=== PATIENT | male | born 1950 | race Caucasian/White ===

== ENCOUNTER → 2022-03-24 | Outpatient (CLI) | payer MEDICARE, OTHER, SELFPAY ==
--- NOTE | 2022-03-24 08:56 | RAD_ITS ---
STUDY: X-RAY CHEST REASON FOR EXAM: Male, 71 years old. Fever and cough TECHNIQUE: PA and lateral views of the chest. COMPARISON: 02/21/2014 FINDINGS: Stable elevation of the left hemidiaphragm The lungs are clear and expanded. There is no demonstrated pleural abnormality. Normal size heart. Normal mediastinum and kim. Normal visualized pulmonary arteries. There is atherosclerotic calcification of the aortic arch with tortuosity. There are diffuse degenerative changes of the visualized thoracic spine. Normal visualized ribs, clavicles, and shoulders. There is no demonstrated abnormality of the visualized soft tissue structures of the upper abdomen. RAD/Chest PA and Lateral IMPRESSION: No acute pulmonary process Electronically Signed: Aaron Green MD at 9:16 EDT ,
[2022-03-24 10:16] LABS: Absolute Lymphocyte Count 2.05 X10^3/uL (0.83-4.51); Absolute Neutrophil Count 3.6 X10^3/uL (2.0-7.7); Basophil# 0.05 X10^3/uL; Basophil% 0.8 % (0-1); Eosinophil# 0.22 X10^3/uL; Eosinophils% 3.3 % (0-5); Hematocrit 42.8 % (40-54); Hemoglobin 14.4 g/dL (13.0-16.5); Lymphocyte # 2.05 X10^3/ul (0.83-4.51); Lymphocyte % 31.1 % (19-41); Mean Corp Hgb Conc 33.6 g/dL (32-36); Mean Corpuscular Hgb 30.1 pg (27.0-32.0); Mean Corpuscular Volume 89.5 fL (80-94); Mean Platelet Vol. 9.9 fl (6.2-12.0); Monocyte% 9.1 % (0-10); NRBC Flagged by Analyzer 0 % (0-5); Neutrophil # 3.64 X10^3/uL (2.7-7.7); Neutrophil % 55.2 % (47-70); Platelet Count 199 K/mm3 (150-450); RBC Distribution Width CV 12.8 % (11.6-14.6); RBC Distribution Width SD 42.2 fl (35.1-43.9); Red Blood Count 4.78 M/mm3 (4.6-6.2); White Blood Count 6.6 K/mm3 (4.4-11.0)
[2022-03-24 10:30] LABS: Prothrombin Time (Protime)PT. 12.5 SECONDS (11.7-14.9)
[2022-03-24 10:31] LABS: Partial Thromboplast Time 28.7 Seconds (24.1-36.2)
[2022-03-24 10:47] LABS: Anion Gap 8 (5-15); BUN 18 mg/dL (7-18); BUN/Creat Ratio 19.9 RATIO (10-20); Calcium,Total 8.7 mg/dL (8.5-10.1); Chloride 103 mmol/L (98-107); EST Glomerular Filtration Rate 88 mL/min (>60); Est Glom Filt Rate - Afr Amer 106 mL/min (>60); Glucose 85 mg/dL (74-106); Potassium 4.6 mmol/L (3.5-5.1); Sodium Level 139 mmol/L (136-145)
== END | disposition home or self-care (01) ==
LOC: MTLAB 08:56
PROVIDERS: PCP Family Medicine; Referring Provider Physician Assistant Medical; Visit Provider Physician Assistant Medical
DX: R06.00 Dyspnea, unspecified (principal); I35.0 Nonrheumatic aortic (valve) stenosis; I25.10 Atherosclerotic heart disease of native coronary artery without angina pectoris
CPT/HCPCS: 36415; 71046; 80048; 85025; 85610; 85730

== ENCOUNTER 2022-03-31 08:36 | Day surgery (SDC) | payer MEDICARE, OTHER, SELFPAY ==
[2022-03-30 07:03] VITALS: BMI 26.1
--- NOTE | 2022-03-30 17:27 | HP.PCM_ITS ---
History and Physical Date of Admission: 03/31/22 [facility] [address] [place], [place] [address] OFFICE VISIT Date of Service:? 02/16/22 MR#: [id number] Acct: [id number] Name:VALE CAMACHO Rep #: [id number] : 1950 ?Provider: ?AUGUSTINE Ayon Age/Sex:? 71/M ?[place] [facility] Status: Signed HPI HPI History of Present Illness Details: Vale Burgess is a 71-year-old male that presents here today for a cardiovascular follow-up.? He has a history of coronary artery disease with previous stenting to mid PDA and distal RCA in February 2014, hypertension, mild aortic valve stenosis, PACs/PVCs, hyperlipidemia, carotid artery disease. Pt underwent a stress test in [place] in 05/2022 for SOB,? He can not tell me what this demonstrated. He was then put on an inhaler for his SOB.? He tells me that there was a question about obtaining a heart cath however since his SOB improved with the inhaler that was not pursued.? He then had an echo in [place].? He tells me that he is scheduled to have a stress test in [place] in May.? He does not have any chest pain.? He is SOB is improved with the MDI. He does not have any claudication. Intake Vital Signs ? 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 Accompanied by: Self Allergies atorvastatin calcium [From Lipitor] Allergy (Verified 02/16/22 10:00) Unknownrosuvastatin calcium [From Crestor] Allergy (Verified 02/16/22 10:00) Unknown Medications cetirizine 10 mg tablet 10 mg PO PRN PRN Allergies 02/22/14 [History Confirmed 02/16/22] amoxicillin 500 mg tablet 2 g PO .COMPLEX 03/04/18 [History Confirmed 02/16/22] etodolac 400 mg tablet (Lodine) 400 mg PO DAILY 02/21/20 [History Confirmed 02/16/22] simvastatin 20 mg tablet 20 mg PO QHS 02/21/20 [History Confirmed 02/16/22] lisinopril 5 mg tablet 5 mg PO QDAY #90 tabs 03/18/21 [Rx Confirmed 02/16/22] gabapentin 100 mg capsule 200 mg PO QHS 02/16/22 [History Confirmed 02/16/22] PFSH Medical History? Aortic stenosis Atherosclerotic heart disease of [place] coronary artery without angina pectoris Bilateral carotid artery stenosis Cardiac murmur Diastolic dysfunction Essential hypertension Hypertension Non-rheumatic mitral regurgitation Non-rheumatic tricuspid valve insufficiency Nonrheumatic aortic (valve) stenosis Osteoarthritis Premature atrial contractions Premature ventricular contraction Syncope Surgical History? History of bilateral cataract extraction History of elbow surgery History of knee replacement procedure of left knee History of knee replacement procedure of right knee History of prostatectomy (~02/2016) History of shoulder surgery History of tonsillectomy and adenoidectomy Postsurgical percutaneous transluminal coronary angioplasty (PTCA) status (~02/23/14) Presence of stent in coronary artery (~02/23/14) Family History? Father?? Myocardial infarction,? Onset Age: 60Mother?? COPD (chronic obstructive pulmonary disease) Aortic aneurysm Social History? Smoking Status:? Former smoker ROS Const Const: Negative for fatigue, weakness, body ache, fever(s), headache(s), chills, frequent falls, night sweats, daytime sleepiness, difficulty sleeping, excessive sweating, weight gain, weight loss, increased appetite, poor appetite, anorexia or other Eyes Eyes: Negative for blurry vision or double vision ENT ENT: Negative for headache(s), dizziness or balance problems Cardio Chest Pain: No Palpitations: No Edema: None Muscle aches with walking: None Resp Respiratory: Positive for SOB with activity and wheezing (occasional); Negative for SOB at rest, SOB orthopnea\SOB lying down, Cough, Coughing up blood/hemoptysis, chest congestion, pain on inspiration, snoring, stridor, crackles, paroxysmal nocturnal dyspnea or other Musc Musc: Positive for muscle aches/ myalgia (silva horse at night); Negative for muscle weakness, joint pain or balance problems Neuro Neuro: Negative for dizziness, lightheadedness, near syncope, syncope, orthostatic symptoms, frequent falls, headache(s), weakness, confusion, memory loss, restless legs, blurry vision, double vision, vertigo, seizures, lack of coordination or other Endo Endo: Negative for fatigue or excessive sweating Cardiology Exam Const Appearance: cooperative, healthy appearing, comfortable, no acute distress, well developed and well groomed Nutritional Appearance: overweight Orientation: alert and oriented x3 Head Head: normal to inspection and normocephalic Ears: hearing grossly normal bilaterally Nose: external nose normal Eyes Eyelids: eyelids normal Conjunctivae: conjunctivae normal Pupils: PERRL EOM: EOM intact bilaterally Neck Neck: normal visual inspection and full ROM Carotids: normal carotid upstroke and bruit Bilateral Chest Chest inspection: normal inspection of the chest, symmetric chest movement and normal respiratory effort Auscultation: Bilateral: Clear to Auscultation Cardio Rate: regular rate Rhythm: regular rhythm Heart sounds: S1 normal, murmur and diminished A2 Murmur: Grade 3/6, mid systolic, LLSB, LVOT, sternal notch and radiates to carotids GI GI: normal to inspection, soft and bowel sounds present Neuro General: patient alert, patient awake, patient oriented x3 and moves all extremities Skin Skin: no rashes or lesions noted Extremities Pulses: Normal: Right Radial Pulse and Left Radial Pulse Lower Extremity Edema: None: Bilateral Psych Psychological: normal affect Supplemental Info Supplemental Information Echocardiogram: 02-20-2014 Interpretation Summary Left ventricular systolic function is normal. The estimated ejection fraction is 60 %. Trivial mitral valve insufficiency. Trivial tricuspid valve insufficiency. Mild aortic stenosis. Stress nuclear imaging study: 02-20-2014 EXERCISE TOLERANCE TEST: The patient exercised on a Angel Luis protocol for 11 minutes 30 seconds completing stage 3 and 2 minutes 30 seconds of stage 4 achieving a peak heart rate of 148 beats per minute (94% predicted maximum heart rate) and a peak blood pressure of 180/88 mmHg and a peak MET capacity of approximately 13 METS. The baseline ECG demonstrated sinus bradycardia.? The peak exercise ECG d emonstrated no obvious ECG changes. There was no obvious cardiac dysrhythmias pretest, during, exercise, or recovery. The functional capacity was considered good. The patient had no complaint of chest discomfort during exercise or recovery. The examination was discontinued secondary to dyspnea. IMPRESSION: 1.? Technically adequate (percent predicted maximum heart rate greater than 85%) exercise tolerance test. 2.? Peak exercise ECG with no obvious ECG changes. 3.? Nuclear images pending. MYOCARDIAL PERFUSION IMAGING STUDY: TECHNIQUE: The patient was injected with 11.1 mCi of Tc99m Cardiolite and subsequently rest SPECT Cardiolite nuclear imaging was obtained in the horizontal long, vertical long, and short axes views.? The patient exercised on a Angel Luis protocol for 11 minutes 30 seconds achieving a peak heart rate of 148 beats per minute (94% predicted maximum heart rate) with a peak blood pressure of 180/88 mmHg and a peak MET capacity of 13 METS.? The patient was injected with 33.4 mCi of Tc99m Cardiolite and subsequently stress SPECT Cardiolite nuclear imaging was obtained in the horizontal long, vertical long, and short axes views.? A gated Cardiolite study at peak stress was obtained. INTERPRETATION: Rest and stress SPECT Cardiolite nuclear imaging demonstrate the appearance of underlying body motion during image acquisition.? There is notation of an area of diminished tracer uptake in the basal inferoseptal/basal inferior segments, which appears to be without significant change.? Following stress there appears to be an area of mild decreased tracer uptake in the mid inferior segments.? There are similar type findings on the resting and stress polar map images.? There is end systolic thickening and brightening.? The gated Cardiolite study demonstrates myocardial thickening and inward wall motion.? The reported LVEF is 68%.? The aforementioned changes maybe compatible with the effects of underlying body motion/artifact during image acquisition and/or soft tissue attenuation/artifact, however, an element of myocardial ischemia in the mid inferior segments cannot necessarily be excluded. IMPRESSION: 1.? Rest and stress SPECT Cardiolite nuclear imaging demonstrate myocardial perfusion changes potentially compatible with body motion/artifact during image acquisition and/or soft tissue attenuation/artifact, however, an element of myocardial ischemia in the mid inferior segments cannot necessarily be excluded. 2.? The gated Cardiolite study reports an LVEF of 68%. Stress echocardiogram: 01-22-2015 Interpretation Summary Negative (Adequate) Stress Echocardiogram Cardiac catheterization: 02-23-2014 Final impression: 1.? Elevated left ventricular end-diastolic pressure compatible decreased diastolic compliance 2.? Left ventricle: A.? Normal left ventricular size, wall motion, and systolic function B.? Estimated LVEF of 65% 3.? Left Main coronary artery: A.? Angiographically normal 4.? Left anterior descending coronary artery: A.? Status post septal senior data developer: 10-25% appearing stenosis in the area of a [place] bend 5.? Left circumflex coronary artery: A.? Minimal luminal irregularities 6.? Right coronary artery: A.? Diffuse minimal luminal irregularities B.? Proximal 25% eccentric-appearing stenosis C.? Distal 10-25% eccentric-appearing stenosis D.? Distal 25-50% eccentric-appearing stenosis E.? Right PDA with 75% appearing stenosis 7.? Aortic valve: A.? Left heart pullback procedure with a peak to peak gradient of approximately 10-15 mmHg compatible with an element of underlying aortic valve stenosis B.? Of note, the precardiac catheterization transthoracic echocardiogram demonstrated findings compatible with mild aortic valve stenosis PCI: 02-23-2014: [facility] RCA: Distal: ANGELITO PDA: Mid: ANGELITO [place] cardiology update: From earlier this -2019 Update: from [place]: echo/doppler: normal LV systolic function and mild to moderate AV stenosis; stress nuclear study considered mild inferior ischemia - similar to before; carotid doppler study: mild disease bilaterally; no new recommendations made. Labs: ?? ? LDL Cholesterol 82 mg/dL (0-130) ?? ? HDL Cholesterol 38 mg/dL (40-) L ?? ? Triglycerides 130 mg/dL (0-199) ?? ? VLDL Cholesterol 26 mg/dL (5-40) Diagnostics: ?? ? Electrocardiogram ? Cardiac Tilt Table Test ? Stress Echocardiogram ? Chest X-Ray ? Pulmonary: ?? ? No Data to Display Assessment and Plan Assessment and Plan (1) Atherosclerotic heart disease of [place] coronary artery without angina pectoris: ?Status:?Chronic ?Qualifiers: ?[place] vs. transplanted heart:?[place] heart? Qualified Code(s):?I25.10 - Atherosclerotic heart disease of [place] coronary artery without angina pectoris ?Plan: Patient does not have any symptoms of angina.? He did tell me that he had a stress test done in [place].? We will obtain these medical records.? There was some question on whether or not he should pursue a heart catheterization however his shortness of breath did improve with his MDI.? For now they are watchful waiting.? He will continue with aggressive medical management. (2) Presence of stent in coronary artery: ?Status:?Chronic ?Comment: PTCA/ANGELITO to the mid PDA and distal RCA 02/23/14 (3) Aortic stenosis: ?Status:?Acute ?Plan: Per [place] records this is moderately severe.? Also suspect that this could have been contributing to his shortness of breath.? We will obtain medical records from [place].? We will then review with Dr. Garg.? However in the meantime we will continue with current medications.? He is not short of breath at this time. (4) Bilateral carotid artery stenosis: ?Status:?Chronic ?Plan: Reviewed medical records from [place].? This is stable.? We will continue to monitor. (5) Essential hypertension: ?Status:?Chronic ?Plan: Adequately controlled on current medications.? Will not make any adjustments. Plan Details Additional Comments: Thank you for allowing me to participate in the care of your patient.? Please don't hesitate to call if any issues arise. This note was generated using a voice recognition system and there may be incorrect words, spelling or punctuation that were not noted when reviewing the office note prior to saving. Follow Up: ? ? 1 Year (PFM) Coding Level of Care Code Off vis,est,level 3 Diagnoses Atherosclerotic heart disease of [place] coronary artery without angina pectoris? I25.10 ? ? ? [place] vs. transplanted heart: [place] heart Presence of stent in coronary artery? Z95.5 Aortic stenosis? I35.0 Bilateral carotid artery stenosis? I65.23 Essential hypertension? I10 Coding Level of Care Code Off vis,est,level 3 Diagnoses Atherosclerotic heart disease of [place] coronary artery without angina pectoris? I25.10 ? ? ? [place] vs. transplanted heart: [place] heart Presence of stent in coronary artery? Z95.5 Aortic stenosis? I35.0 Bilateral carotid artery stenosis? I65.23 Essential hypertension? I10 02/16/22 1043 <Electronically signed by Mei BRADSHAW> Date Mei Lugo Signature: Date (if applicable) CC:? Dr. Daryl Cortes MD ~ Assessment & Plan Addt'l Comments Addendum: The patient had a transthoracic echocardiogram performed at [facility] [place], [place] on 06-23-2021. It demonstrated what appeared to be findings compatible with severe aortic valve stenosis with an aortic valve velocity greater than 4 m/s, a mean gradient greater than 40 mmHg, and an aortic valve area less than 1.0 cm?. The patient had a stress test performed at [facility] [place], [place] on 06-25-2021. It was reported abnormal demonstrating an area of ischemia in the mid inferior segment which was reportedly similar to a previous study performed in June 2020. Based upon the aforementioned clinical course and objective findings it was felt reasonable to patient be further evaluated with diagnostic cardiac catheterization to reassess coronary anatomy for need for additional revascularization therapy as well as in preparation for consideration for a tertiary care center evaluation for a possible TAVR procedure. The patient now presents for additional evaluation with diagnostic cardiac catheterization. The procedure and risks have been discussed with him. He was agreeable to this approach.
[2022-03-31 10:30] LABS: Base Excess 2 mmol/L (-2 to +2); Bicarbonate 27.4 mmol/L (22-26); Blood Gas Specimen Type ART; PO2 66 mmHG (75-100); SO2 92 % (95-99); Total Carbon Dioxide 29 mmol/L; pCO2 46.2 mmHg (35-45); pH 7.38 (7.35-7.45)
[2022-03-31 10:40] LABS: Blood Gas Specimen Type VEN; VBG BASE EXCESS 4 mmol/L (-1.0-3.5); VBG Bicarbonate 30 mmol/L (22-26); VBG PO2 42 mmHg (25-40); VBG SO2 75 % (50-70); VBG TCO2 31 mmol/L (23-33); VBG pCO2 50.7 mmHg (41-51); VBG pH 7.37 (7.32-7.42)
[2022-03-31 10:45] LABS: Blood Gas Specimen Type VEN; VBG BASE EXCESS 5 mmol/L (-1.0-3.5); VBG Bicarbonate 30 mmol/L (22-26); VBG PO2 40 mmHg (25-40); VBG SO2 73 % (50-70); VBG TCO2 31 mmol/L (23-33); VBG pH 7.38 (7.32-7.42)
[2022-03-31 10:55] LABS: Blood Gas Specimen Type VEN; VBG BASE EXCESS 4 mmol/L (-1.0-3.5); VBG Bicarbonate 29 mmol/L (22-26); VBG PO2 40 mmHg (25-40); VBG SO2 71 % (50-70); VBG TCO2 31 mmol/L (23-33); VBG pCO2 51.9 mmHg (41-51); VBG pH 7.36 (7.32-7.42)
--- NOTE | 2022-03-31 11:49 | CL.D_ITS ---
Patient Name: VALE MARTE Study Date: 03/31/2022 Performing: Dio Garg MD Ht: 69 inches 175.26 cm : 1950 Wt: 177.01 lbs 80.29 kg Age: 71 Gender: male BSA: 1.96 PROCEDURE(S) PERFORMED DC06-([id number])RHC/LHC/COR CLINICAL PROFILE AND INDICATIONS Indications: Suspected CAD, Valvular Disease, Pre-Operative Evaluation Heart Failure: None Stress/Imaging Date: 06/25/2021tress Test with SPECT MPI: Positive Intermediate Risk Angina Classification Anginal Classification w/in 2 Weeks: Anginal Equivalent Dyspnea CAD Presentations: Other: dyspnea on exertion CONCLUSIONS [place] Multivessel CAD Aortic Valve Calcification- Severe Aortic Valve Insufficiency Mild RECOMMENDATIONS Risk factor modification Medical therapy Tertiary Care Center: evaluation for CAD and AV stenosis: consideration for PCI and TAVR Case discussed / reviewed with Dr. Taylor of Interventional Cardiology DESCRIPTION OF PROCEDURE The patient arrived to the procedure lab. The risks and benefits of the procedure as well as a full description of our services here and current unavailability of surgical backup were fully explained to the patient and/or their significant other prior to the catheterization. The Timeout was completed, verifying the correct patient and procedure. The patient's procedural site was prepped and draped in the usual fashion. Local anesthetic was given subcutaneously to right radial region with Lidocaine 2%. Local anesthetic was given subcutaneously to right brachial region with Lidocaine 2%. Using a modified Seldinger technique, arterial access was obtained via the right radial artery, a 6Fr sheath was inserted. Venous access was obtained via the right brachiocephalic vein, a 7Fr sheath was inserted. A 7Fr thermal dilution catheter was inserted and right heart pressures were recorded, it was then advanced to PA position for cardiac outputs. Thermal dilution cardiac outputs were then recorded. O2 saturations were then obtained. The Thermal dilution catheter was then removed. Left Coronary Artery selective angiography was performed in multiple views using a 5 Fr. 4.0 [place] catheter. Right Coronary Artery selective angiography was then performed in multiple views using a 5 Fr. 4.0 [place] catheter.The arterial sheath was pulled and a TR Band was applied for hemostasis. The venous sheath was then pulled and manual compression applied until hemostasis achieved CORONARY ANGIOGRAPHY DOMINANCE: Right Dominant LEFT HEART ASSESSMENT RIGHT HEART ASSESSMENT Thermal CO: 5.68 Thermal CI: 2.9 PW: 7/6 5 PA: 24/6 12 RV: 25/-2 3 RA: 3/1 0 PVR: 99 LEFT MAIN: Angiographically normal LEFT ANTERIOR DESCENDING ARTERY: PROX LAD: Mild calcification, Mild luminal irregularities MID LAD: 25 % Stenosis CIRCUMFLEX ARTERY: PROX CIRC: Mild luminal irregularities RIGHT CORONARY ARTERY: Mild luminal irregularities DISTAL RCA: hazy: 75 % Stenosis (pre stent), Previously placed stent is patent RT PDA: Proximal - 75 % Stenosis, Mid - Previously placed stent is patent VALVE FINDINGS: Aortic Valve Calcification - severe Aortic Valve Insufficiency: Grade 1 AORTIC ROOT: Angiographically normal COMPLICATIONS No Complications PROCEDURE MEDICATIONS Fentanyl 50 mcg IV Versed 1 mg IV Aspirin (325mg) 1 Tabs PO @ 03/31/2022 08:57:23 Heparin given IA 03/31/2022 10:43:35 Verapamil 2.5mg, 3000 units of Heparin given IA 03/31/2022 10:43:35 SUMMARY OF HEMODYNAMIC DATA Time AIR REST ECG 08:58:14 RA 3/ (0) 10:37:20 RV 25/-2, 3 10:37:48 PW 7/6 (5) PV 10:38:28 PA 24/6 (12) PA 10:38:45 PAp 27/5 (13) 10:40:55 RVp 27/6, 9 10:41:00 AO 135/60 (88) SA 10:47:54 ECG 11:40:48 Type SV CO (l/m) CI (l/m/ HR Time AIR REST Thermal 88.80 5.68 2.90 64 08:58:14 Label % O2 Pres/Loc Time AIR REST SVC 71 11:12:14 AO 92 PV 11:12:24 PA 73 PA 11:12:33 RA 75 SV 11:12:39 Signed By Dio Garg MD On 03/31/2022 11:48:41 Dio Garg MD
== END 2022-03-31 13:00 | disposition home or self-care (01) ==
LOC: CLSP 08:39
PROVIDERS: PCP Family Medicine; Referring Provider Internal Medicine Cardiovascular Disease; Visit Provider Internal Medicine Cardiovascular Disease
DX: I25.10 Atherosclerotic heart disease of native coronary artery without angina pectoris (principal); I35.2 Nonrheumatic aortic (valve) stenosis with insufficiency; I65.23 Occlusion and stenosis of bilateral carotid arteries; I10 Essential (primary) hypertension; Z95.5 Presence of coronary angioplasty implant and graft; Z79.899 Other long term (current) drug therapy; Z87.891 Personal history of nicotine dependence; Z82.49 Family history of ischemic heart disease and other diseases of the circulatory system
CPT/HCPCS: 82803; 93005; 93457; 99152; 99153; J7040; Q9967; C1751; C1769; C1894

== ENCOUNTER → 2023-01-14 | Outpatient (CLI) | payer MEDICARE, OTHER, SELFPAY ==
--- NOTE | 2023-01-14 08:23 | MRI_ITS ---
STUDY: MRI RIGHT KNEE REASON FOR EXAM: Male, 72 years old. TECHNIQUE: Standardized fat and water weighted pulse sequences were obtained in all 3 orthogonal planes. COMPARISON: None. FINDINGS: Very limited examination. Examination is not diagnostic. MRI/Lower Ext Joint Only (Routine) IMPRESSION: Nondiagnostic examination. Electronically Signed: Erik Pete MD at 13:44 EDT ,
== END | disposition home or self-care (01) ==
LOC: MRI 08:14
PROVIDERS: PCP Family Medicine; Referring Provider Orthopaedic Surgery; Visit Provider Orthopaedic Surgery
DX: T84.84XA Pain due to internal orthopedic prosthetic devices, implants and grafts, initial encounter (principal); X58.XXXA Exposure to other specified factors, initial encounter; Z96.651 Presence of right artificial knee joint
CPT/HCPCS: 73721

== ENCOUNTER → 2023-12-08 | Outpatient (CLI) | payer MEDICARE, OTHER, SELFPAY ==
--- NOTE | 2023-12-08 16:58 | RAD_ITS ---
STUDY: X-RAY - LUMBAR SPINE REASON FOR EXAM: Male, 73 years old. LOW BACK PAIN WITH SCIATICA TECHNIQUE: 5 view(s) of the lumbar spine were obtained. COMPARISON: None FINDINGS: Normal lumbar lordosis. There is moderate levo scoliosis. Grade 1 retrolisthesis at L3-4 and spondylolisthesis at L5-S1 Mild chronic wedging of superior endplate of L3 No evidence for acute fracture or subluxation. No lytic or sclerotic bony lesions. Multilevel disc space narrowing and endplate spurring Diffuse calcification of the aorta without evidence for aneurysm RAD/L/S Spine Min 4 Views IMPRESSION: Scoliosis and severe degenerative change. No acute fracture or other significant bony pathology. Electronically Signed: Rosales Tao MD at 20:35 EDT ,
== END | disposition home or self-care (01) ==
PROVIDERS: PCP Family Medicine; Referring Provider Family Medicine; Visit Provider Family Medicine
DX: M54.40 Lumbago with sciatica, unspecified side (principal)
CPT/HCPCS: 72110

== ENCOUNTER 2023-12-30 00:10 | Emergency (ER) | payer MEDICARE, OTHER, SELFPAY ==
[2023-12-30 00:11] VITALS: PULSE 101; RESP 22; TEMP 36.8; O2SAT 95; BMI 26.9
[2023-12-30 00:15] VITALS: O2SAT 94
[2023-12-30 01:10] VITALS: BP 125/69; PULSE 92; RESP 17; O2SAT 94
--- NOTE | 2023-12-30 01:25 | EKG12_ITS ---
Test Reason : SOB Blood Pressure : / mmHG Vent. Rate : 096 BPM Atrial Rate : 096 BPM P-R Int : 162 ms QRS Dur : 086 ms QT Int : 366 ms P-R-T Axes : 058 001 024 degrees QTc Int : 462 ms Normal sinus rhythm Possible Left atrial enlargement Borderline ECG When compared with ECG of 31-MAR-2022 08:27, No significant change was found Confirmed by SHAWN SCOTT, AYLIN ([id number]), video effects editor JERILYN HENDRICKSON ([id number]) on 01/05/2024 10:04:50 AM Referred By: CHARISSE Confirmed By:AYLIN ESCOBAR MD
--- NOTE | 2023-12-30 01:25 | RAD_ITS ---
INDICATION: chest pain EXAMINATION/TECHNIQUE: X-RAY - XR Chest 1 View COMPARISON: Prior study dated: 03/24/2022 FINDINGS: LINES/DEVICES: None. LUNGS: Elevated left hemidiaphragm. No consolidation, edema or effusion. No pneumothorax. MEDIASTINUM AND CARDIOVASCULAR STRUCTURES: Cardiac silhouette not enlarged. Central airways and mediastinal contour are unremarkable. BONES AND SOFT TISSUES: No acute abnormality. Chronic widening of the acromioclavicular joint on the right. RAD/Chest 1 View (Portable) IMPRESSION: No acute pulmonary finding. Electronically Signed: Haeth Birch MD at 1:59 EDT ,
[2023-12-30 01:33] LABS: Absolute Lymphocyte Count 0.83 X10^3/uL (0.83-4.51); Absolute Neutrophil Count 8.8 X10^3/uL (2.0-7.7); Basophil# 0.06 X10^3/uL; Basophil% 0.6 % (0-1); Eosinophil# 0.04 X10^3/uL; Eosinophils% 0.4 % (0-5); Hematocrit 33.8 % (40-54); Hemoglobin 10.6 g/dL (13.0-16.5); Lymphocyte # 0.83 X10^3/ul (0.83-4.51); Lymphocyte % 8.2 % (19-41); Mean Corp Hgb Conc 31.4 g/dL (32-36); Mean Corpuscular Volume 86.2 fL (80-94); Mean Platelet Vol. 10.3 fl (6.2-12.0); Monocyte# 0.39 X10^3/uL; Monocyte% 3.8 % (0-10); NRBC Flagged by Analyzer 0 % (0-5); Neutrophil # 8.77 X10^3/uL (2.7-7.7); Neutrophil % 86.5 % (47-70); Platelet Count 255 K/mm3 (150-450); RBC Distribution Width CV 15.2 % (11.6-14.6); RBC Distribution Width SD 47.7 fl (35.1-43.9); Red Blood Count 3.92 M/mm3 (4.6-6.2); White Blood Count 10.1 K/mm3 (4.4-11.0)
[2023-12-30 01:48] LABS: Anion Gap 7 (5-15); BUN 23 mg/dL (7-18); BUN/Creat Ratio 26.4 RATIO (10-20); Calcium,Total 8.7 mg/dL (8.5-10.1); Chloride 106 mmol/L (98-107); Creatinine, Serum 0.87 mg/dL (0.70-1.30); EST Glomerular Filtration Rate 91 mL/min (>60); Est Glom Filt Rate - Afr Amer 110 mL/min (>60); Estimated Creatinine Clearance 73.16 ml/min; Glucose 170 mg/dL (74-106); Potassium 4.2 mmol/L (3.5-5.1); Sodium Level 137 mmol/L (136-145); Troponin-I HS (w/2H Reflex) 31 pg/mL (3.0-78.0)
[2023-12-30 02:00] VITALS: BP 125/69; PULSE 78; RESP 12; O2SAT 93
[2023-12-30 03:00] VITALS: BP 128/72; PULSE 76; RESP 18; O2SAT 93
[2023-12-30 03:04] LABS: Troponin-I HS 48 pg/mL (3.0-78.0)
--- NOTE | 2023-12-30 03:18 | EX.ED.DYSGE1 ---
HPI History of Present Illness Chief Complaint: Shortness of Breath Informant: patient Narrative Narrative: Patient is a 73-year-old male with past medical history of coronary artery disease carotid artery stenosis aortic stenosis and hypertension. He also reports he is mild COPD/emphysema. He states that for the past 3-5 nights he will wake up around 2 in the morning and feels short of breath. He states that he gets up and moves around after roughly 30 minutes to an hour his symptoms resolve. He states that during this time there is no chest pain and he denies any known sick exposures or any recent fevers or chills. This evening the symptoms persisted again and secondary to its recurrent nature he comes in for evaluation [facility] Medical History (Updated 12/31/23 @ 03:[address] Huang Marsh, DO) Hard of hearing History of left heart catheterization (LHC) (~03/31/22) Aortic stenosis Diastolic dysfunction Bilateral carotid artery stenosis Non-rheumatic tricuspid valve insufficiency Non-rheumatic mitral regurgitation Essential hypertension Osteoarthritis Hypertension Cardiac murmur Syncope Nonrheumatic aortic (valve) stenosis Premature ventricular contraction Premature atrial contractions Atherosclerotic heart disease of [place] coronary artery without angina pectoris Home Medications ?Medication ?Instructions ?Recorded ?Last Taken ?Type etodolac 400 mg tablet (Lodine) 400 mg PO BID 02/21/20 Unknown History simvastatin 20 mg tablet 20 mg PO DAILY 02/21/20 03/31/22 History lisinopril 5 mg tablet 5 mg PO QDAY #90 tabs 06/21/23 Unknown Rx gabapentin 100 mg capsule 200 mg PO QHS 12/06/23 Unknown History omeprazole 20 mg capsule,delayed 20 mg PO QDAY 12/06/23 Unknown History release cetirizine 5 mg-pseudoephedrine ER 1 tab PO BID 12/24/23 Unknown History 120 mg tablet,extended release,12hr (Zyrtec-D) acetaminophen 325 mg capsule 650 mg PO Q4H PRN pain 12/30/23 Unknown History (Tylenol) multivitamin-ferrous 1 tab PO DAILY 12/30/23 Unknown History fumarate-folic acid 18 mg-400 mcg tablet (A Thru Z Advanced Formula) Allergy/AdvReac Type Severity Reaction Status Date / Time atorvastatin calcium (From Allergy Unknown Verified 12/30/23 00:11 Lipitor) rosuvastatin calcium (From Allergy Unknown Verified 12/30/23 00:11 Crestor) Family History Father Myocardial infarction, Onset Age: 60 Mother COPD (chronic obstructive pulmonary disease) Aortic aneurysm Surgical History History of bilateral cataract extraction History of elbow surgery History of knee replacement procedure of left knee History of prostatectomy (~02/2016) History of tonsillectomy and adenoidectomy History of shoulder surgery History of knee replacement procedure of right knee Presence of stent in coronary artery (~02/23/14) Postsurgical percutaneous transluminal coronary angioplasty (PTCA) status (~02/23/14) Social History Smoking Status: Former smoker ROS ROS ED Constitutional Constitutional ED: Denies chills or fever(s) Eyes Eyes: Denies change in vision ENT ENT ED: Denies sore throat Cardiovascular Cardiovascular: Denies chest pain, palpitations or racing heartbeat Respiratory/Chest Respiratory/Chest: Reports dyspnea; Denies cough Gastrointestinal Gastrointestinal: Denies abdominal pain, diarrhea, nausea or vomiting Genitourinary Genitourinary ED: Denies dysuria Musculoskeletal Musculoskeletal: Denies myalgias Integumentary Denies rash Neurologic Neurologic: Denies headache(s) or paresthesias Hematologic/Lymphatic Hematologic/Lymphatic: Denies easy bleeding or easy bruising EXAM Physical Exam Const Vital Signs: 12/30/23 00:11 12/30/23 00:15 12/30/23 01:10 Temperature 98.2 F Temperature Source Oral Pulse Rate 101 H 92 Respiratory Rate 22 H 17 Respiratory Effort Short of Breath Labored Respiratory Depth Shallow Respiratory Pattern Tachypnea Blood Pressure 125/69 H Blood Pressure Mean 87 Pulse Ox 95 94 Oxygen Delivery Method Room Air Room Air 12/30/23 01:27 12/30/23 02:00 12/30/23 03:00 Temperature Temperature Source Pulse Rate 78 76 Respiratory Rate 12 18 Respiratory Effort Respiratory Depth Respiratory Pattern Blood Pressure 125/69 H 128/72 H Blood Pressure Mean 87 90 Pulse Ox 93 93 Oxygen Delivery Method Room Air Room Air Room Air Positive well nourished and well developed General Appearance ED: well developed; Negative for pallor HEENT Reports moist mucous membranes HEENT Narrative: No tongue or lip swelling no oral lesions no airway edema or compromise Eyes PERRL and EOMs intact bilaterally General Eye ED: Negative for pale conjunctiva or scleral icterus Neck supple and no JVD Neck Narrative: No nuchal rigidity or meningeal signs noted Chest Wall palpation of chest normal Chest Narrative: No bony deformity or crepitance palpated Resp normal respiratory effort and clear to auscultation bilaterally Resp Narrative: No nasal flaring retractions tachypnea or accessory muscle use Cardio regular rate and regular rhythm Rate: other Other Details: Heart is regular rate and rhythm with grade 3 out of 6 systolic murmur consistent with history of aortic stenosis Radial and carotid pulses are equal and symmetric GI normal to inspection, nondistended, normoactive bowel sounds, non-tender, non-distended and no masses GI Narrative: No voluntary guarding or rigidity No peritoneal signs or pulsatile mass or fluid wave Auscultation: normoactive bowel sounds Palpation: soft Back/Spine no CVA tenderness Extremity normal to inspection Extremity Narrative: No pitting edema Negative Homans' sign bilaterally Neuro oriented x3, CN's II-XII intact bilaterally and no sensory deficits noted Sensorium / Orientation: alert Motor Exam: strength 5/5 throughout Psych mental status grossly normal Skin no rashes or lesions noted and no wounds General Skin Exam: Negative for jaundice or pallor MDM MDM MDM Narrative Medical decision making narrative: Patient reported waking up around 2 in the morning each night with sensation of shortness of breath that would resolve after 30 minutes to 1 hour. He does state he has a history of COPD and emphysema and he supposed to be taking an inhaler when he is not doing so. Differential diagnosis is for bronchospasm versus pneumonia versus pneumothorax versus acute coronary syndrome or cardiac dysrhythmia. A basic workup was obtained and shows no signs of severe anemia or acute kidney injury or severe electrolyte abnormality. The patient's chest x-ray revealed no acute lung pathology and his EKG revealed no signs of cardiac dysrhythmia or cardiac ischemia. His initial troponin was 31 and the delta technically was normal as I did not increase by over 20 points. As it was a higher elevation at 18 points traveling to 48 from 31 we discussed obtaining a third troponin. However the patient states that he is symptom-free without any type of medication provided in the ER. Therefore this time as vitals are stable his symptoms have spontaneously resolved and technically his troponins are stable as they have not elevated over 20 points I feel like he most likely experienced shortness of breath from bronchospasm from not taking his inhalers. 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 Labs: Laboratory Results - last 24 hr 12/30/23 12/30/23 00:15 02:37 WBC 10.1 RBC 3.92 L Hgb 10.6 L Hct 33.8 L MCV 86.2 MCH 27.0 MCHC 31.4 L RDW Std Deviation 47.7 H RDW Coeff of [place] 15.2 H Plt Count 255 MPV 10.3 Immature Gran % (Auto) 0.500 Neut % (Auto) 86.5 H Lymph % (Auto) 8.2 L [place] % (Auto) 3.8 Eos % (Auto) 0.4 Baso % (Auto) 0.6 Absolute Neuts (auto) 8.8 H Absolute Lymphs (auto) 0.83 Nucleated RBC % 0 Sodium 137 Potassium 4.2 Chloride 106 Carbon Dioxide 24.0 Anion Gap 7 BUN 23 H Creatinine 0.87 Estim Creat Clear Calc 73.16 Est GFR (MDRD) Af Amer 110 Est GFR (MDRD) Non-Af 91 BUN/Creatinine Ratio 26.4 H Glucose 170 H Calcium 8.7 Troponin I High Sens 31 48 Radiography Diagnostic Testing: Clinical Impression(s) from Imaging Studies Chest X-Ray 12/30/23 01:25 IMPRESSION: No acute pulmonary finding. Electronically Signed: Heath Birch MD at 1:59 EDT , Chest x-ray as interpreted by the emergency medicine physician reveals no acute infiltrate pneumothorax pleural effusion or widening mediastinum Discharge Plan Triage Chief Complaint: Shortness of Breath ED Provider: Huang Marsh Dx/Rx/DC Orders Clinical Impression: Dyspnea, Essential hypertension, Aortic stenosis Instructions: ED Dyspnea Prescriptions: No Action etodolac [Lodine] 400 mg tablet 400 mg PO BID simvastatin 20 mg tablet 20 mg PO DAILY gabapentin 100 mg capsule 200 mg PO QHS omeprazole 20 mg capsule,delayed release(DR/EC) 20 mg PO QDAY cetirizine-pseudoephedrine [Zyrtec-D] 5-120 mg tablet extended release 12 hr 1 tab PO BID acetaminophen [Tylenol] 325 mg capsule 650 mg PO Q4H PRN (Reason: pain) A Thru Z Advanced Formula 18-400 mg-mcg tablet 1 tab PO DAILY lisinopril 5 mg tablet 5 mg PO QDAY Qty: 90 3RF Primary Care Provider: Kendell Bundy Referrals: Kendell Bundy MD [Primary Care Provider] - Activity Restrictions/Additional Instructions: Your workup today did not show any signs of heart damage and abnormal heart rhythm or pneumonia or fluid in your lungs. The shortness of breath could be due to a bronchospasm secondary to your COPD/emphysema. Continue all your medications as directed by your doctor follow-up with him/her for repeat evaluation and return to the ER should you have any further concerns Print Language: Portuguese Disposition Disposition: Home, Self Care Discharge Date/Time: 12/30/23 03:27
[2023-12-30 03:26] VITALS: BP 128/72; PULSE 82; RESP 16; TEMP 36.3; O2SAT 99
[2023-12-30 03:30] LABS: Reflex Troponin-HS? (from REC) Y
== END 2023-12-30 03:27 | disposition home or self-care (01) ==
PROVIDERS: Emergency Provider Emergency Medicine; PCP Family Medicine; Visit Provider Emergency Medicine
DX: R06.00 Dyspnea, unspecified (principal); I35.0 Nonrheumatic aortic (valve) stenosis; I10 Essential (primary) hypertension; I25.10 Atherosclerotic heart disease of native coronary artery without angina pectoris; Z79.899 Other long term (current) drug therapy; Z87.891 Personal history of nicotine dependence; Z95.5 Presence of coronary angioplasty implant and graft
CPT/HCPCS: 71045; 80048; 84484; 85025; 93005; 99284; A4216

== ENCOUNTER → 2024-01-25 | Outpatient (CLI) | payer MEDICARE, OTHER, SELFPAY ==
--- NOTE | 2024-01-25 08:05 | CR.ITP_ITS ---
Diagnosis General Information Admitting Diagnosis: S/P TAVR Secondary Diagnosis: Coronary stenting in 2014, CAD, HTN Personal Learning Style:: Audio/Visual and Written Barriers to Learning: Hearing Impairment (Slight hearing loss) Stage of change r/t lifestyle modifications:: Action Gave educational material for:: Treating Heart Disease, How The Heart Works, What it means to have Heart Disease, How Coronary Artery Disease is Diagnosed, Heart Procedures, What Heart Medications Do, Risk Factors & Modifications, Living an Active Life, Nutrition, Emotions & Heart Disease, Stress Management & Relaxation and Sleep Disorders & Heart Disease Education/Goals Individual Counseling: Initial Assessment: Abnormal Cholesterol Levels and High Blood Pressure Cardiac Rehabilitation Goals Personal Goals: Initial Assessment: Improve management of stress and emotions, Improve muscle strength and endurance and Other goal: (Get back to regular work- outs) Scale for measuring improvement of personal goals Diagnosis & Disease Process Outcomes/Goals: Pt IDs own risk factors & lifestyle modifications by Session 10, Verbalizes symptoms of angina & response by session 3. and Pt independently manages Plan/Interventions: Assist Pt to ID & engage in lifestyle modification to reduce CVD risk, Instruct on individual risk factors, Review symptoms of angina & emergency actions and Review secondary diagnosis & identify educational needs. Safety Referral to Physical Therapy: No Referral to [facility] Case Management: No Fall Risk Assessed:: Yes Assistive Devices:: None Exercise - Initial Assessment Visit Date of Eval: 01/25/24 Session #:: 0 (Pre-program evaluation) Mets: Pre-: >7 METS for 30 minutes by discharge Physician Prescribed Exercise Modalities: Treadmill, Schwinn Airdyne AD-7 and SciFit Stepper Frequency: 3x/week for 12 weeks [36 sessions] (Patient request truncated program 18 sessions, then to be able to resume his normal exercise routine at home- swimming laps.) Intensity: 60-80% of age predicted maximum heart rate reserve Duration: 30 - 45 minutes Current METSs:: 4.0 Target Heart Rate:: 110-125 Resting Blood Pressure: 117/61 EKG Type: Sinus Rhythm Current Physical Activity or Exercising minutes: Prior to the TAVR patient had a routine exercise program and swimming laps Outcomes & Goals Goals:: Verbalizes understanding of THR, RPE & goal METS by session 6, Documents in home exercise log/reports 30 min aerobic 5 day/wk by DC and Demonstrates accurate pulse taking by DC Intervention & Plan Exercise Program Goals: Instruct on personal THR & RPE, Instruct on MET level & personal MET goal, Show patient to take own pulse /validate performance until accurate and Instruct on home exercise Physical Activity Home Exercise Physical Activity - Home Exercise: Safe Exercise, Warm-up, Self-monitoring, Cool-Down, Home Exercise > 30 min Daily and Sitting Time <3 hours/daily Outcomes & Goals Outcomes/Goals: Demonstrates correct Warm-up/exercise Cool-Down (S3) if = 2.5 METs, Verbalizes symptoms of exercise intolerance by Session 3 (S3) and Demonstrate safe equipment use (S3) & follows exercise prescrition (6) Intervention & Plan Plan/Intervention: Instruct warm-up & cool-down if exercising at > 2 METs, Instruct on symptoms of exercise intolerance & actions to take, Instruct & monitor on saf and Assess intial functional capacity & safety risk Nutrition - Initial Assessment Program Goals Nutrition Program Goals Patient has diagnosis of Hyperlipidemia (ICD E78)?: Yes Visit Date of Eval: 01/25/24 Session #:: 0 (Pre-program evaluation) Cholesterol/Lipids (Other Core Measures) Triglycerides (mg/dL): 130 Total Cholesterol (mg/dL): 146 LDL Cholesterol (mg/dL): 82 HDL Cholesterol (mg/dL): 38 Determine presence & major risk factors that modify LDL goal: Hypertension or hypertensive medication, Low HDL cholesterol <40 mg/dL* and Age men > 45 years; women >/= 55 years Outcomes/Goals: Pt IDs own risk factors & lifestyle modifications by Session 10, Verbalizes symptoms of angina & response by session 3. and Pt independently manages Intervention/Plan: Instruct on personal lipid levels & lipid goals/NCEP guidelines and Instruct on cholesterol Referral to dietitian:: Yes Diabetes (Other Core Measures) Diabetes Type: Not Applicable Weight Mgt (Other Care) Not Applicable: Yes Height: 5 ft 9 in Weight:: 171 lb BMI: 25.2 Diagnosis Overweight/Obesity BMI> 30% ICD-10 E66: No Diagnosis High BMI/Morbid Obesity BMI> 35% ICD-10 Z68: No Outcomes/Goals: Pt sets, maintains & shows weight loss goal & trend during rehab Intervention/Plan: Instruct on ideal BMI & set weight loss goal w/patient Healthy Eating Habits Will attend diet classes:: Yes Outcomes/Goals:: Consume diet rich in vegs,fruits,whole grain/high fiber,fish,lean meat and Limit sat/trans fats,cholesterol & added salts & sugars Intervention/Plan:: Assess current eating habits Education Gave educational materials for:: Healthy eating Core - Initial Assessment Visit Date of Eval: 01/25/24 Session #:: 0 (pre-program evaluation ) Medication Compliance Preventative Medication(s):: Aspirin, Statin/lipid and Beta marvin H/O mental health issues: depression, anxiety, or addiction?: No Doesn?t believe in the benefits of treatment?: No Believes medications are unnecessary or harmful?: No Has a concern about medication side effects?: No Expresses concern over the cost of medications?: No Outcomes/Goals: Verbalizes medications,desired effect & common side effects @ DC, Pt self-reports following medication regimen and Keeps card in wallet w/medications listed by DC Interventions/plans: Instruct on medication effects & side effects, Review medication list w/patient every two weeks and Instruct importance of taking meds as ordered & assist problem solving Tobacco Use Tobacco Use: Non-smoker Hypertension Hypertension Diagnosis:: Hypertension ICD-10 I10 Resting Blood Pressure:: 117/61 [place] [employer] Hypertension Guidelines Outcomes/Goals: Able to verbalize/achieve optimal blood pressure <130/80 and Incorporates diet changes & exercise for blood pressure control by DC Interventions/plan: Instruct on optimal blood pressure, hypertension & medications and Instruct on effects of sodium, alcohol, stress, exercise &hypertension Tobacco Cessation Referral Smoking Cessation Referral:: No Individual Education/Counseling:: No Education Schedule Given:: Yes Psychosocial - Initial Assess VIsit Date of Eval: 01/25/24 Session #:: 0 (Pre-program evaluation) Not Applicable: Yes History of previous Mental disease:: No Target Goals Target Goals Psychosocial Test Tool Used:: Ramakrishna Esteves QOL Cardiac and PHQ-9 Questionnaire phq-9 Severity Referral to Behavioral Health PS - Interventions: Yes: Attend Stress Management Classes and No: Referral to Behavioral Health if PHQ-9 score >9:, No: Referral to [facility] and No: Referral to Physician if PHQ-9 if score is 5-9: Outcomes/Goals: See list Psychosocial Outcomes/Goals:: ID's personal stressors & 2 strategies to manage stress by discharge Intervention/Plan: See List Interventions/Plan:: Assess stressors,coping strategies & signs of derpression on admission Patient Health Questionnaire PHQ-9 Screening Initial Assessment: 2. Feeling down, depressed, or hopeless: Not at all 3. Trouble falling or staying asleep, or sleeping too much: Not at all 4. Feeling tired or having little energy: Not at all 5. Poor appetite or overeating: Not at all 6. Feeling bad about yourself -- or that you are a failure or have let yourself or your family down: Not at all 7. Trouble concentrating on things, such as reading the newspaper or watching television: Not at all 8. Moving or speaking so slowly that other people could have noticed. Or the opposite - being so fidgety or restless that you have been moving around a lot more than usual: Not at all 9. Thoughts that you would be better off , or of hurting yourself in some way: Not at all How difficult have these problems made it for you to do your work, take care of things at home, or get along with other people?: Not difficult at all Total Score: 0 ANYI-Q SV Test Statements CAD is a disease of the arteries in the heart: False Examples of risk factors for heart disease: True Angina is chest pain or discomfort: False The benefits of resistance training include: True Eating more meat and dairy products: False Anti-platelet medications such as aspirin are important: True The only effective way to manage stress: False An exercise warm-up slowly increases heart rate: True Prepared, processed foods usually have high sodium: True Depression is common after a heart attack: True The statin medications lower cholesterol: True To control blood pressure, lower the amount of sodium: I Don't Know If someone gets chest discomfort during walking: False Transfats are partially hydrogenated vegetable oils: True Sleep apnea that is not treated increases the risk: False To control cholesterol, one should become a vegetarian: False Someone knows if he/she is exercising at the right level: True Diabetes cannot be prevented with exercise & health eating: True Stress is a large risk for heart attack: True A diet that can help lower blood pressure is rich in: True Total Score Total Correct Responses: 17 Self-Efficacy 6-Item Scale Initial Assessment: We would like to know how confident you are in doing certain activities. Please select your confidence level for: Fatigue Select Number: 10 Physical Discomfort or Pain Select Number: 10 Emotional Distress Select Number: 10 Other Symptoms or Health Problems Select Number: 10 Different Tasks and Activities Select Number: 10 Medication Select Number: 10 Total Score:: 10 Nutrition Survey Nutrition Survey Instructions Scoring Instructions Nutrition Survey Initial: Have you lost >10 lbs over the past 2 months without trying?: Yes Are you following a special diet at home for diabetes, low fat, or low salt?: Yes Are you interested in meeting with a dietitian for help understanding your diet?: No Do you eat less than 3 meals a day?: Yes Do you eat fatty meats (cuadra, sausage, ribs, etc), fried foods, desserts, large amounts of salad dressings, margarine, butter, or cheese most days?: No Do you have food allergies? [Enter types in comment field]: No Do you eat in restaurants more than 3 times a week?: No Do you season food with salt, seasoning salt, or garlic salt?: Yes Do you used canned, boxed, frozen meals, or soups, seasoning packets?: No Total Score:: 4 Exercise - 30-day Assessment Physician Prescribed Exercise Modalities: Treadmill, Schwinn Airdyne AD-7 and SciFit Stepper Exercise - 60-day Assessment Physician Prescribed Exercise Modalities: Treadmill, Schwinn Airdyne AD-7 and SciFit Stepper Exercise - 90-day Assessment Physician Prescribed Exercise Modalities: Treadmill, Schwinn Airdyne AD-7 and SciFit Stepper Exercise - Final/Discharge Physician Prescribed Exercise Modalities: Treadmill, Schwinn Airdyne AD-7 and SciFit Stepper Frequency: 3x/week for 12 weeks [36 sessions] (Patient request truncated program 18 sessions, then to be able to resume his normal exercise routine at home- swimming laps.) Intensity: 60-80% of age predicted maximum heart rate reserve Current METSs:: 4.0 Target Heart Rate:: 110-125 Nutrition - 30-Day Assessment Weight Mgt (Other Care) Height: 5 ft 9 in Weight:: 171 lb BMI: 25.2 Nutrition - 60-Day Assessment Weight Mgt (Other Care) Height: 5 ft 9 in Weight:: 171 lb BMI: 25.2 Core - 30-Day Assessment Visit Session #:: 0 (Pre-program evaluation) Core - Final Assessment Hypertension Resting Blood Pressure:: 117/61 [place] [employer] Hypertension Guidelines Core - 60-Day Assessment Hypertension Resting Blood Pressure:: 117/61 [place] [employer] Hypertension Guidelines Psychosocial - 30-Day Assess Target Goals Target Goals Referral to Behavioral Health PS - Interventions: Yes: Attend Stress Management Classes and No: Referral to Behavioral Health if PHQ-9 score >9:, No: Referral to [facility] and No: Referral to Physician if PHQ-9 if score is 5-9: Psychosocial - 60-Day Assess Target Goals Target Goals Referral to Behavioral Health PS - Interventions: Yes: Attend Stress Management Classes and No: Referral to Behavioral Health if PHQ-9 score >9:, No: Referral to [facility] and No: Referral to Physician if PHQ-9 if score is 5-9: Psychosocial - 90-Day Assess Target Goals Target Goals Referral to Behavioral Health PS - Interventions: Yes: Attend Stress Management Classes and No: Referral to Behavioral Health if PHQ-9 score >9:, No: Referral to [facility] and No: Referral to Physician if PHQ-9 if score is 5-9: Psychosocial - Final Assessmen Target Goals Target Goals Referral to Behavioral Health PS - Interventions: Yes: Attend Stress Management Classes and No: Referral to Behavioral Health if PHQ-9 score >9:, No: Referral to [facility] and No: Referral to Physician if PHQ-9 if score is 5-9: Nutrition - 90-Day Assessment Weight Mgt (Other Care) Height: 5 ft 9 in Weight:: 171 lb BMI: 25.2 Nutrition - Final Assessment Program Goals Patient has diagnosis of Hyperlipidemia (ICD E78)?: Yes Weight Mgt (Other Care) Height: 5 ft 9 in Weight:: 171 lb BMI: 25.2
--- NOTE | 2024-01-25 08:05 | PCM.CR.HP2 ---
CR - History & Physical General Arrival date:: 01/25/24 Arrival time:: 08:00 Date of Referral:: 01/14/24 Date of CR Evaluation:: 01/25/24 Referring Physician: Dr. Miguel Short Primary Diagnosis: S/P Heart Valve Replacement History of Present Cardiac Event Onset Date Heart valve replacement or repair:: Yes (TAVR 01/05/2024) PTCA or coronary stenting:: Yes (2013 and did Cardiac Rehab here for that procedure) Type of Symptoms:: Shortness of breath, fatigue, bronchial spasms Interventions with present event:: Dr. Short sent me to [facility] for heart valve replacement Were there any complications?: none Medications Ambulatory Orders ?Medication ?Instructions ?Recorded etodolac 400 mg tablet (Lodine) 400 mg PO BID 02/21/20 simvastatin 20 mg tablet 20 mg PO DAILY 02/21/20 lisinopril 5 mg tablet 5 mg PO QDAY #90 tabs 06/21/23 omeprazole 20 mg capsule,delayed 20 mg PO QDAY 12/06/23 release cetirizine 5 mg-pseudoephedrine ER 1 tab PO BID 12/24/23 120 mg tablet,extended release,12hr (Zyrtec-D) acetaminophen 325 mg capsule 650 mg PO Q4H PRN pain 12/30/23 (Tylenol) multivitamin-ferrous 1 tab PO DAILY 12/30/23 fumarate-folic acid 18 mg-400 mcg tablet (A Thru Z Advanced Formula) aspirin 81 mg tablet,delayed 81 mg PO DAILY 01/18/24 release (Adult Aspirin Regimen) gabapentin 100 mg capsule 100 mg PO TID 01/18/24 doxycycline hyclate 100 mg capsule 100 mg PO BID 10 days #20 caps 01/23/24 Allergies Allergies atorvastatin calcium (From Lipitor) Allergy (Verified 01/23/24 09:40) Unknown rosuvastatin calcium (From Crestor) Allergy (Verified 01/23/24 09:40) Unknown Sleep Disorder Evaluation Hx of Sleep Apnea: No Do you snore loudly (louder than talking or can be heard through closed doors)?: No Do you often feel tired/ fatigued/ sleepy during daytime?: No Has anyone observed you stop breathing during sleep?: No History of Hypertension (for STOP score): Yes STOP Results: Negative Advanced Directives Advanced Directives Power of Business Banker: Yes Living Will: Yes Advance Directives Information Provided: No Advance Directives on File: No (Patient is not sure if they are on file.) Past Medical History Covid-19 Screening Physicial Symptoms Fever: No Unexplained muscle aches: No Current respiratory symptoms: No Upper respiratory infections symptoms: No Gastro-intestinal symptoms: Yes (History of stomach acid reflux (GERD)) Kfc-[id number]-[id number] symptoms: No Other Clinical Concerns Has tested positive for COVID-19 in last 30 days: No Exposure Risk Had contact w/person w/symptoms or Covid-19 (+) last 14 days: No Has High Risk Exposures ID'd by Health dept/Inf Control team: No Pertinent Comorbidities 65 years or older:: Yes Lives in Assisted Living facility:: No Has a chronic lung disease or moderate to severe asthma:: Yes Has a serious heart condition:: Yes Immunocompromised:: No Severely obese (Body Mass Index of 40 or higher):: No Diabetic:: No Has chronic kidney disease undergoing dialysis:: No Has liver disease:: No Past Medical Illness Past Medical History History of transcatheter aortic valve replacement (TAVR) Z95.2 01/05/24 26mm TANNER S3 valve Hard of hearing H91.90 History of left heart catheterization (LHC) (~03/31/22) Z98.890 LEFT MAIN: Angiographically normal; LEFT ANTERIOR DESCENDING ARTERY: PROX LAD: Mild calcification, Mild luminal irregularities MID LAD: 25 % Stenosis; CIRCUMFLEX ARTERY: PROX CIRC: Mild luminal irregularities; RIGHT CORONARY ARTERY: Mild luminal irregularities; DISTAL RCA: hazy: 75 % Stenosis (pre stent), Previously placed stent is patent; RT PDA: Proximal - 75 % Stenosis, Mid - Previously placed stent is patent; VALVE FINDINGS: Aortic Valve Calcification - severe Aortic Valve Insufficiency: Grade 1; AORTIC ROOT: Angiographically normal RECOMMENDATIONS: [facility]: evaluation for CAD and AV stenosis: consideration for PCI and TAVR per cardiac cath Dr. Garg 03/31/22 Aortic stenosis I35.0 Patient has critical aortic stenosis with a mean gradient of 84 and a peak of 113. He is already made his own self-referral scheduled appointment with Dr. Jarod Flannery at [facility]. He had called the office asking for recommendations of who he should see and I gave him Dr. Flannery's name. The patient is being evaluated for potential TAVR. Diastolic dysfunction I51.89 Bilateral carotid artery stenosis I65.23 Patient had mechanical bilateral carotid disease on the duplex done July 27, 2023 where the right internal carotid was less than 50 the left internal carotid was less than 50. There was antegrade flow in both vertebral arteries. Non-rheumatic tricuspid valve insufficiency I36.1 Non-rheumatic mitral regurgitation I34.0 Essential hypertension I10 Osteoarthritis M19.90 Hypertension I10 Cardiac murmur R01.1 Syncope R55 Nonrheumatic aortic (valve) stenosis I35.0 Premature ventricular contraction I49.3 Premature atrial contractions I49.1 Atherosclerotic heart disease of teller coronary artery without angina pectoris I25.10 The patient's cath as noted above and nonobstructive coronary artery disease. He is trying to obtain the films from [place]. Past Surgical History Past Surgical History History of bilateral cataract extraction Z98.41, Z98.42 History of elbow surgery Z98.890 History of knee replacement procedure of left knee Z96.652 History of prostatectomy (~02/2016) Z90.79 History of tonsillectomy and adenoidectomy Z98.890 History of shoulder surgery Z98.890 Right History of knee replacement procedure of right knee Z96.651 Presence of stent in coronary artery (~02/23/14) Z95.5 PTCA/ANGELITO to the mid PDA and distal RCA 02/23/14 Postsurgical percutaneous transluminal coronary angioplasty (PTCA) status (~02/23/14) Z98.61 PTCA/ANGELITO to the mid PDA and distal RCA 02/23/14 Family History Summary Family History Father Myocardial infarction, Onset Age: 60 Mother COPD (chronic obstructive pulmonary disease) Aortic aneurysm Social History Smoking History Smoking Status: Former smoker Occupation Occupation (List type of work in comments):: Retired Hobbies, Recreation, Social Activities Hobbies: Sports (swimming), Walking and Exercise (Regular exercise routine prior to TAVR, encouraged by Physician to do CR before resuming his home program.) Recreational Activities: I am able to engage in all my recreational activities Social Environment Status Marital Status: Current Living Arrangements Living Environment:: Spouse Children How many children do you have?: 3 Do any of your children live nearby?: Yes Safety Do you feel safe in your surroundings?: Yes Assistance Do you need any assistance at home?: no Review of Systems Review of Systems Hints Review of Present Symptoms: Reports Appetite - Normal, Appetite - Special Diet and Sleep - Normal; Denies Shortness of Breath at Rest, Shortness of Breath with Exertion, Operative Discomfort, Angina, Dizziness/Lightheadedness (momentary double vision lightheadedness right after the TAVR, no periods since then.), Fatigue, Heart Arrhythmia/Irregularities or Sexual Changes Pain Is Patient Pain Free?: No Pain Location: back (Gets steroid injections/pain management for Lumbar scoliosis, chronic back pain.) and lower extremity (Right knee given problems since replacement in 2009, has had both knees replaced.) Risk Factor Assessment Vital Signs Temperature: 98.5 F Respiratory Rate: 16 Pulse Ox: 95 Blood Pressure: 117/61 Pulse Pulse Rate: 82 Pulse Rhythm: Regular Hypertension How long have you been treated?: even before my stents in 2013 On medication(s)?: Yes Blood Pressure Sitting - Left Arm: 117/61 Stress Stress: Long-standing (Two younger children (personality disorder, afflictions) to be independent, younger daughter thrown us away, can cause stress and 32 years in AA. ) Blood Cholesterol/Lipids Total Cholesterol (mg/dL) Goal = less than 200 mg/dL: 146 HDL Cholesterol (mg/dL) Goal = less than 40 mg/dL: 38 LDL Cholesterol (mg/dL) Goal = less than 70 mg/dL: 82 Triglycerides (mg/dL) Goal = less than 150 mg/dL: 130 Diabetes Nutrition Referral for Diabetes: No Obesity Height: 5 ft 8 in Weight:: 171 lb Weight in Pounds: 171.0 lbs Weight Source: Stated by Patient Body Mass Index (BMI): 25.9 Nutritional Referral for Obesity: No Physical Inactivity Physical Inactivity: Reg Exercise 30 min/day Risk Stratification Risk Guidelines: Lowest Risk: Risk Factor for Smoking, Risk Factor for Dyslipidemia, Risk Factor for Diabetes, Risk Factor for Obesity, Risk Factor for Hypertension, Risk Factor for Sedentary Lifestyle and Risk Factor for Depression For Smoking Smoking Risk Guidelines For Dyslipidemia Dyslipidemia Risk Guidelines For Diabetes Mellitus Diabetes Risk Guidelines For Obesity/Overweight Obesity/Overweight Risk Guidelines For Hypertension Hypertension Risk Guidelines For Sedentary Lifestyle Sedentary Lifestyle Risk Guidelines For Depression Depression Risk Guidelines Family History Family History Father Myocardial infarction, Onset Age: 60 Mother COPD (chronic obstructive pulmonary disease) Aortic aneurysm Motivation Motivation to Participate On a scale of 1 to 10, how prepared are you to commit to attending program?: 10 What do you see as barriers to successfully being able to complete the program?: No What do you see as the benefits of succesfully completing the program? In other words, what do you hope to get out of participating in the program?: Return to normal workouts, freedom to resume home activities, since onset. Are there issues you are dealing with that will interfere with completing the program?: No Do you have a spouse or signficant other, family or friends who will help support you to complete the program?: Yes
[2024-01-25 08:27] VITALS: BP 117/61; BMI 25.2
[2024-01-25 08:33] VITALS: BP 117/61; PULSE 82; RESP 16; TEMP 36.9; O2SAT 95; BMI 25.9
== END | disposition home or self-care (01) ==
LOC: CR 07:56
PROVIDERS: PCP Family Medicine; Referring Provider Internal Medicine Cardiovascular Disease; Visit Provider Internal Medicine Cardiovascular Disease
DX: Z95.2 Presence of prosthetic heart valve (principal); R06.02 Shortness of breath; R53.83 Other fatigue; J98.01 Acute bronchospasm; I10 Essential (primary) hypertension; H91.90 Unspecified hearing loss, unspecified ear; I35.0 Nonrheumatic aortic (valve) stenosis; I51.89 Other ill-defined heart diseases; I65.23 Occlusion and stenosis of bilateral carotid arteries; I36.1 Nonrheumatic tricuspid (valve) insufficiency; I34.0 Nonrheumatic mitral (valve) insufficiency; M19.90 Unspecified osteoarthritis, unspecified site; R01.1 Cardiac murmur, unspecified; R55 Syncope and collapse; I49.3 Ventricular premature depolarization; I49.1 Atrial premature depolarization; I25.10 Atherosclerotic heart disease of native coronary artery without angina pectoris; Z98.41 Cataract extraction status, right eye; Z98.42 Cataract extraction status, left eye; Z98.890 Other specified postprocedural states; Z90.79 Acquired absence of other genital organ(s); Z98.61 Coronary angioplasty status; Z96.653 Presence of artificial knee joint, bilateral

== ENCOUNTER 2024-02-16 09:30 | Outpatient (RCR) | payer MEDICARE, OTHER, SELFPAY ==
[2024-01-25 08:27] VITALS: BMI 25.2
== END 2024-02-16 23:59 ==
LOC: CR 09:30
PROVIDERS: PCP Family Medicine; Referring Provider Internal Medicine Cardiovascular Disease; Visit Provider Internal Medicine Cardiovascular Disease
DX: Z95.3 Presence of xenogenic heart valve (principal)
CPT/HCPCS: 93798

== ENCOUNTER → 2024-03-08 | Outpatient (CLI) | payer MEDICARE, OTHER, SELFPAY ==
[2024-01-25 08:27] VITALS: BMI 25.2
[2024-02-25 08:41] VITALS: BMI 24.7
--- NOTE | 2024-03-08 13:00 | ART_ITS ---
Reason For Study: Bilateral upper extremity claudication Procedure A bilateral upper extremity continuous wave Doppler with analog waveform analysis and segmental pressures. Rayauds protocol performed. Left Segmental Pressures Left brachial= 117mmHg. Left radial= 159mmHg. Left ulnar= 135mmHg. Left digit = 122 mmHg. The left radial waveforms are triphasic. The left ulnar waveforms are triphasic. Right Segmental Pressures Right brachial= 112mmHg. Right radial= 151mmHg. Right ulnar= 166mmHg. Right digit = 133 mmHg. The right radial waveforms are triphasic. The right ulnar waveforms are triphasic. Indices The right wrist-brachial index by the radial artery is 1.29. The right wrist-brachial index by the ulnar artery is 1.42. The right digital-brachial index is 1.14. The left wrist-brachial index by the radial artery is 1.36. The left wrist-brachial index by the ulnar artery is 1.15. The left digital- brachial index is 1.04. VL/Upper Extremity Arterial Study Interpretation Summary Right wrist-brachial index 1.42, normal. Digit index and PVR/Doppler waveforms normal at rest Left wrist-brachial index 1.36, normal. 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 Ordering Physician: Suri Sepulveda Referring Physician: Kendell Bundy Performed By: Lesli Lares RVT and Student
== END | disposition home or self-care (01) ==
LOC: CVS 12:51
PROVIDERS: PCP Family Medicine; Referring Provider Physician Assistant; Visit Provider Physician Assistant
DX: I73.9 Peripheral vascular disease, unspecified (principal)
CPT/HCPCS: 93923; 93930

== ENCOUNTER 2024-03-17 09:30 | Outpatient (RCR) | payer MEDICARE, OTHER, SELFPAY ==
[2024-01-25 08:27] VITALS: BMI 25.2
--- NOTE | 2024-02-25 08:30 | CR.ITP_ITS ---
Exercise - Initial Assessment Visit Session #:: 12 Physician Prescribed Exercise Modalities: Treadmill, Schwinn Airdyne AD-7 and SciFit Stepper Nutrition - Initial Assessment Weight Mgt (Other Care) Height: 5 ft 9 in Weight:: 168 lb BMI: 24.7 Psychosocial - Initial Assess Target Goals Target Goals Patient Health Questionnaire PHQ-9 Screening 30-Day Re-eval Assessment: 1. Little interest or pleasure in doing things: Not at all 2. Feeling down, depressed, or hopeless: Not at all 3. Trouble falling or staying asleep, or sleeping too much: Not at all 4. Feeling tired or having little energy: Not at all 5. Poor appetite or overeating: Not at all 6. Feeling bad about yourself -- or that you are a failure or have let yourself or your family down: Not at all 7. Trouble concentrating on things, such as reading the newspaper or watching television: Not at all 8. Moving or speaking so slowly that other people could have noticed. Or the opposite - being so fidgety or restless that you have been moving around a lot more than usual: Not at all 9. Thoughts that you would be better off , or of hurting yourself in some way: Not at all How difficult have these problems made it for you to do your work, take care of things at home, or get along with other people?: Not difficult at all Total Score: 0 Self-Efficacy 6-Item Scale 30-Day Re-eval Assessment: We would like to know how confident you are in doing certain activities. Please select your confidence level for: Fatigue Select Number: 10 Physical Discomfort or Pain Select Number: 10 Emotional Distress Select Number: 10 Other Symptoms or Health Problems Select Number: 10 Different Tasks and Activities Select Number: 10 Medication Select Number: 10 Total Score:: 10 Nutrition Survey Nutrition Survey Instructions Scoring Instructions Exercise - 30-day Assessment Visit Date of Eval: 02/25/24 Session #:: 12 Physician Prescribed Exercise Modalities: Treadmill, Schwinn Airdyne AD-7 and SciFit Stepper Frequency: 3x/week for 12 weeks [36 sessions] Intensity: 60-80% of age predicted maximum heart rate reserve Duration: 30 - 45 minutes Current METSs:: 5.5 Target Heart Rate:: 110-125 Current RPE:: 14-15 Maximum Excercise HR:: 118 Resting Blood Pressure: 130/72 Maximum Exercise Blood Pressure: 172/74 EKG Type: NSR to ST with rare to occas PVC's, rare PAC. Rare vent trigeminy, bigeminy Outcomes & Goals Goals:: Verbalizes understanding of THR, RPE & goal METS by session 6, Documents in home exercise log/reports 30 min aerobic 5 day/wk by DC, Demonstrates accurate pulse taking by DC and Other additional outcome/goals: see below Intervention & Plan Exercise Program Goals: Instruct on personal THR & RPE, Instruct on MET level & personal MET goal, Show patient to take own pulse /validate performance until accurate, Instruct on home exercise and Other additional plan/int 30-day Reassessments 30 day Reassessments:: Progressing Reassessment Notes & Comments:: RPE explained Physical Activity Home Exercise Physical Activity - Home Exercise: Safe Exercise, Warm-up, Self-monitoring, Cool-Down, Home Exercise > 30 min Daily and Sitting Time <3 hours/daily Outcomes & Goals Outcomes/Goals: Demonstrates correct Warm-up/exercise Cool-Down (S3) if = 2.5 METs, Verbalizes symptoms of exercise intolerance by Session 3 (S3), Demonstrate safe equipment use (S3) & follows exercise prescrition (6) and Other: See below Intervention & Plan Plan/Intervention: Instruct warm-up & cool-down if exercising at > 2 METs, Instruct on symptoms of exercise intolerance & actions to take, Instruct & monitor on saf, Assess intial functional capacity & safety risk and Other See below 30-day Reassessments 30 day Reassessments:: Progressing Reassessment Notes & Comments:: warm up encouraged Exercise - 60-day Assessment Physician Prescribed Exercise Modalities: Treadmill, Schwinn Airdyne AD-7 and SciFit Stepper Exercise - 90-day Assessment Physician Prescribed Exercise Modalities: Treadmill, Schwinn Airdyne AD-7 and SciFit Stepper Exercise - Final/Discharge Physician Prescribed Exercise Modalities: Treadmill, Schwinn Airdyne AD-7 and SciFit Stepper Nutrition - 30-Day Assessment Program Goals Nutrition Program Goals Patient has diagnosis of Hyperlipidemia (ICD E78)?: Yes Visit Date of Eval: 02/25/24 Session #:: 12 Cholesterol/Lipids (Other Core Measures) Determine presence & major risk factors that modify LDL goal: Hypertension or hypertensive medication, Low HDL cholesterol <40 mg/dL*, Family history of premature CHD in Male < 55 years: female <65 yearsFa and Age men > 45 years; women >/= 55 years Outcomes/Goals: Pt IDs own risk factors & lifestyle modifications by Session 10, Verbalizes symptoms of angina & response by session 3., Pt independently manages and Other Additional Outcomes/Goals: Intervention/Plan: Advocate for lipid panel cholesterol medication if applicable, Instruct on personal lipid levels & lipid goals/NCEP guidelines, Instruct on cholesterol and Other additional plan/int 30-day Reassessments:: Progressing Reassessment Notes & Comments:: pt was referred to manager equity Diabetes (Other Core Measures) Diabetes Type: Not Applicable Weight Mgt (Other Care) Height: 5 ft 9 in Weight:: 168 lb BMI: 24.7 Diagnosis Overweight/Obesity BMI> 30% ICD-10 E66: No Diagnosis High BMI/Morbid Obesity BMI> 35% ICD-10 Z68: No Outcomes/Goals: Pt sets, maintains & shows weight loss goal & trend during rehab and Other additional outcomes/goals Intervention/Plan: Instruct on ideal BMI & set weight loss goal w/patient, Assist pt to ID & incorporate diet changes for weight loss by S9, Refer to Structured Weight Loss program as appropriate, Encourage goal of using 250- 300dcal per session for weight loss and Other additional plan/interventions 30 day Reassessments:: Met Healthy Eating Habits Will attend diet classes:: Yes Outcomes/Goals:: Consume diet rich in vegs,fruits,whole grain/high fiber,fish,lean meat, Limit sat/trans fats,cholesterol & added salts & sugars and Other additional outcome/goals: Intervention/Plan:: Assess current eating habits and Other Additional plan/interventions 30-day Reassessments:: Progressing Reassessment Notes & Comments:: pt will attend nutrition class Education Gave educational materials for:: Signs & symptoms of hypoglycemia, Signs & s ymptoms of hyperglycemia, Relate diabetes to coronary artery disease and Healthy eating Nutrition - 60-Day Assessment Weight Mgt (Other Care) Height: 5 ft 9 in Weight:: 168 lb BMI: 24.7 Core - 30-Day Assessment Visit Date of Eval: 02/25/24 Session #:: 12 Medication Compliance Preventative Medication(s):: Aspirin, Statin/lipid and Beta marvin H/O mental health issues: depression, anxiety, or addiction?: No Doesn?t believe in the benefits of treatment?: No Believes medications are unnecessary or harmful?: No Has a concern about medication side effects?: No Expresses concern over the cost of medications?: No Outcomes/Goals: Verbalizes medications,desired effect & common side effects @ DC, Pt self-reports following medication regimen, Keeps card in wallet w/medications listed by DC and Other additional outcome/goals: Interventions/plans: Instruct on medication effects & side effects, Review medication list w/patient every two weeks, Instruct importance of taking meds as ordered & assist problem solving and Other additional 30-day Reassessments:: Met Tobacco Use Tobacco Use: Non-smoker Hypertension Hypertension Diagnosis:: Hypertension ICD-10 I10 Resting Blood Pressure:: 130/72 [place] [employer] Hypertension Guidelines Peak Exercise Blood Pressure:: 172/74 Outcomes/Goals: Able to verbalize/achieve optimal blood pressure <130/80, Incorporates diet changes & exercise for blood pressure control by DC and Other additional outcomes/goals Interventions/plan: Instruct on optimal blood pressure, hypertension & medications, Instruct on effects of sodium, alcohol, stress, exercise &hypertension and Other additional plan/interventions 30 day Reassessments:: Met Tobacco Cessation Referral Smoking Cessation Referral:: No Individual Education/Counseling:: No Education Schedule Given:: Yes Psychosocial - 30-Day Assess VIsit Date of Eval: 02/25/24 Session #:: 12 History of previous Mental disease:: No Target Goals Target Goals Outcomes/Goals: See list Psychosocial Outcomes/Goals:: ID's personal stressors & 2 strategies to manage stress by discharge and Other Additional outcome/goals: Intervention/Plan: See List Interventions/Plan:: Assess stressors,coping strategies & signs of derpression on admission, Instruct/assist pt to develop coping & personal stress Mgt strategies, Refer to Behavioral Health if appropriate, Refer to Physician if appropriate, Instruct patient to recognize signs & symptoms of depression, Instruct patient to recog and Other additional plan/intervention 30-day Reassessments: 30 day Reassessments:: Met Psychosocial - 60-Day Assess Target Goals Target Goals Outcomes/Goals: See list Psychosocial Outcomes/Goals:: ID's personal stressors & 2 strategies to manage stress by discharge and Other Additional outcome/goals: Psychosocial - 90-Day Assess Target Goals Target Goals Psychosocial - Final Assessmen Target Goals Target Goals Nutrition - 90-Day Assessment Weight Mgt (Other Care) Height: 5 ft 9 in Weight:: 168 lb BMI: 24.7 Nutrition - Final Assessment Weight Mgt (Other Care) Height: 5 ft 9 in Weight:: 168 lb BMI: 24.7
[2024-02-25 08:41] VITALS: BP 130/72; BMI 24.7
== END 2024-03-18 23:59 ==
LOC: CR 09:30
PROVIDERS: PCP Family Medicine; Referring Provider Internal Medicine Cardiovascular Disease; Visit Provider Internal Medicine Cardiovascular Disease
DX: Z95.3 Presence of xenogenic heart valve (principal)
CPT/HCPCS: 93798

== ENCOUNTER 2024-04-13 08:00 | Outpatient (RCR) | payer SELFPAY ==
[2024-03-19 00:27] VITALS: BP 130/72; BMI 25.2
== END 2024-04-17 23:59 ==
LOC: CR 08:00
PROVIDERS: PCP Family Medicine; Referring Provider Internal Medicine Cardiovascular Disease; Visit Provider Internal Medicine Cardiovascular Disease
DX: Z00.00 Encounter for general adult medical examination without abnormal findings (principal)

== ENCOUNTER 2024-05-11 08:00 | Outpatient (RCR) | payer SELFPAY ==
[2024-04-18 09:32] VITALS: BMI 24.7
== END 2024-05-18 23:59 ==
LOC: CR 08:00
PROVIDERS: PCP Family Medicine; Referring Provider Internal Medicine Cardiovascular Disease; Visit Provider Internal Medicine Cardiovascular Disease
DX: Z00.00 Encounter for general adult medical examination without abnormal findings (principal)

== ENCOUNTER → 2024-12-20 | Outpatient (CLI) | payer MEDICARE, OTHER, SELFPAY ==
[2024-04-18 09:32] VITALS: BMI 24.7
--- NOTE | 2024-12-20 12:52 | ECHOD_ITS ---
Reason For Study Reason For Study: TAVR Procedure This was a 2D Doppler, Color Flow transthoracic echocardiogram. The study was technically difficult. Exam performed in department. Left Ventricle Moderate concentric left ventricular hypertrophy. Normal LV size. LV global systolic function hyperdynamic. Estimated LVEF 75%. Stage I diastolic dysfunction. Right Ventricle Normal right ventricle. Atria The left atrium is moderately enlarged. Normal right atrium. Mitral Valve Mild mitral annular calcification. Trivial mitral valve insufficiency. Tricuspid Valve Trivial tricuspid valve insufficiency. Unable to estimate RV systolic pressure due to insufficient tricuspid regurgitant envelope. Aortic Valve Bioprosthetic aortic valve functioning normal. Mean peak gradient 4 mmHg. Pulmonic Valve The pulmonic valve is not well visualized. Great Vessels Normal sized aortic root. Pericardium/Pleural No pericardial effusion. MMode/2D Measurements & Calculations LVIDd: 3.8 cm IVSd: 1.5 cm Ao root diam: 3.0 cm LVIDs: 2.4 cm LVPWd: 1.2 cm LA dimension: 4.5 cm RVDd: 3.0 cm FS: 36.1 % LAV(MOD-sp4): 56.5 ml LVAd ap4: 33.7 cm2 LVAd ap2: 19.0 cm2 LVLd ap4: 8.6 cm LVLd ap2: 7.6 cm EDV(MOD-sp4): 113.6 ml EDV(MOD-sp2): 39.7 ml EDV(sp4-el): 112.3 ml EDV(sp2-el): 40.5 ml LVAs ap4: 13.5 cm2 LVAs ap2: 7.3 cm2 LVLs ap4: 6.1 cm LVLs ap2: 5.0 cm ESV(MOD-sp4): 24.2 ml ESV(MOD-sp2): 9.3 ml ESV(sp4-el): 25.5 ml ESV(sp2-el): 9.0 ml EF(MOD-sp4): 78.7 % EF(MOD-sp2): 76.6 % EF(sp4-el): 77.3 % SV(MOD-sp4): 89.3 ml SV(MOD-sp2): 30.4 ml SV(sp4-el): 86.8 ml SI(MOD-sp4): 46.3 ml/m2 SI(MOD-sp2): 15.8 ml/m2 LA A4 area: 19.0 cm2 TAPSE: 2.4 cm Time Measurements MV dec time: 0.25 sec Doppler Measurements & Calculations MV E max delvis: 64.2 cm/sec Lat Peak E' Delvis: 10.3 cm/sec Med Peak E' Delvis: 9.0 cm/sec MV A max delvis: 102.7 cm/sec E/E' lat: 6.2 E/E' med: 7.1 MV E/A: 0.63 MV V2 max: 111.6 cm/sec MV P1/2t max delvis: 70.9 cm/sec Ao V2 max: 141.2 cm/sec MV max P.0 mmHg MV P1/2t: 84.6 msec Ao max P.0 mmHg MV V2 mean: 47.5 cm/sec Ao V2 mean: 91.7 cm/sec MV mean P.1 mmHg MV dec slope: 245.4 cm/sec2 Ao mean P.7 mmHg MV V2 VTI: 27.0 cm MVA(P1/2t): 2.6 cm2 Ao V2 VTI: 26.1 cm AV (velocity ratio): 0.73 LV V1 max: 91.4 cm/sec PA V2 max: 99.5 cm/sec TR max delvis: 246.4 cm/sec LV V1 max P.3 mmHg PA V2 mean: 61.3 cm/sec TR max P.3 mmHg LV V1 mean P.6 mmHg PA V2 VTI: 16.8 cm LV V1 mean: 59.6 cm/sec LV V1 VTI: 19.0 cm ECHO/Echo Complete Interpretation Summary Moderate concentric left ventricular hypertrophy. LV global systolic function hyperdynamic. Estimated LVEF 75%. Stage I diastolic dysfunction. The left atrium is moderately enlarged. Mild mitral annular calcification. Bioprosthetic aortic valve functioning normal. Mean peak gradient 4 mmHg. The study was technically difficult. Ordering Physician: Daryl Pressley Referring Physician: Kendell Bundy Performed By: Haylie Brannon, CARRIE, RVT
== END | disposition home or self-care (01) ==
PROVIDERS: PCP Family Medicine; Referring Provider Nurse Practitioner Family; Visit Provider Nurse Practitioner Family
DX: Z95.3 Presence of xenogenic heart valve (principal)
CPT/HCPCS: 93306

== ENCOUNTER 2025-01-09 08:00 | Outpatient (RCR) | payer MEDICARE, OTHER, SELFPAY ==
[2024-04-18 09:32] VITALS: BMI 24.7
== END 2025-01-15 23:59 ==
LOC: CR 08:00
PROVIDERS: PCP Family Medicine; Referring Provider Internal Medicine Cardiovascular Disease; Visit Provider Internal Medicine Cardiovascular Disease
DX: Z00.00 Encounter for general adult medical examination without abnormal findings (principal)

== ENCOUNTER 2025-02-15 08:00 | Outpatient (RCR) | payer SELFPAY ==
[2024-04-18 09:32] VITALS: BMI 24.7
== END 2025-02-15 23:59 ==
LOC: CR 08:00
PROVIDERS: PCP Family Medicine; Referring Provider Internal Medicine Cardiovascular Disease; Visit Provider Internal Medicine Cardiovascular Disease
DX: Z00.00 Encounter for general adult medical examination without abnormal findings (principal)

== ENCOUNTER 2025-03-08 08:00 | Outpatient (RCR) | payer SELFPAY ==
[2024-04-18 09:32] VITALS: BMI 24.7
== END 2025-03-18 23:59 ==
LOC: CR 08:00
PROVIDERS: PCP Family Medicine; Referring Provider Internal Medicine Cardiovascular Disease; Visit Provider Internal Medicine Cardiovascular Disease
DX: Z00.00 Encounter for general adult medical examination without abnormal findings (principal)

== ENCOUNTER 2025-04-17 08:00 | Outpatient (RCR) | payer SELFPAY ==
[2024-04-18 09:32] VITALS: BMI 24.7
== END 2025-04-17 23:59 ==
LOC: CR 08:00
PROVIDERS: PCP Family Medicine; Referring Provider Internal Medicine Cardiovascular Disease; Visit Provider Internal Medicine Cardiovascular Disease
DX: Z00.00 Encounter for general adult medical examination without abnormal findings (principal)

== ENCOUNTER 2025-05-10 13:58 | Emergency (ER) | payer MEDICARE, OTHER, SELFPAY ==
[2024-04-18 09:32] VITALS: BMI 24.7
[2025-05-10 13:59] VITALS: BP 160/90; PULSE 85; RESP 16; TEMP 36.1; O2SAT 97; BMI 25.4
--- NOTE | 2025-05-10 14:05 | RAD_ITS ---
PROCEDURE: ANKLE MIN 3 VIEWS 05/10/2025 REASON FOR EXAM: INJURY TECHNIQUE: Procedure Code: RADANK Modality: DX Procedure: ANKLE MIN 3 VIEWS Laterality: Right COMPARISON: None. FINDINGS: No acute fracture or dislocation. The ankle mortise is grossly intact. No significant degenerative changes. No focal soft tissue swelling. RAD/Ankle min 3 Views IMPRESSION: As above. Reading Location: [id number]
[2025-05-10 15:06] VITALS: BP 136/83; PULSE 75; RESP 16; O2SAT 96
--- NOTE | 2025-05-10 15:11 | EX.ED.GENINJ ---
HPI History of Present Illness Chief Complaint: Lower Extremity Injury Detail of Chief Complaint: Blunt trauma medial aspect right right leg several centimeters above the me Informant: patient Onset/Context/Timing Onset: Today and Hours Mechanism/Context: Blunt Injury Location of pain/injuries: Right lower leg Quality of Pain: - Location: Superior medial malleolus right ankle Current Severity: Gone Maximum Severity: Moderate Worsened by: Initial injury Relieved by: Not applicable Associated Symptoms Associated Symptoms: Negative for Parasthesias, Weakness, Loss of function or Inability to ambulate Narrative Narrative: Patient is a 75-year-old male. He dropped a plate on his right leg. He presents with skin tear and pain above the medial malleolus. He denies prior injury. He denies paresthesia, anesthesia motors. He has no other complaints. Prior similar symptoms: No Recent Illness/Hospitalization: No [facility] Medical History History of transcatheter aortic valve replacement (TAVR) Hard of hearing History of left heart catheterization (LHC) (~03/31/22) Aortic stenosis Diastolic dysfunction Bilateral carotid artery stenosis Non-rheumatic tricuspid valve insufficiency Non-rheumatic mitral regurgitation Essential hypertension Osteoarthritis Hypertension Cardiac murmur Syncope Nonrheumatic aortic (valve) stenosis Premature ventricular contraction Premature atrial contractions Atherosclerotic heart disease of [place] coronary artery without angina pectoris Home Medications Medication Instructions Recorded Last Taken Type etodolac 400 mg tablet (Lodine) 400 mg PO BID 02/21/20 Unknown History simvastatin 20 mg tablet 20 mg PO DAILY 02/21/20 03/31/22 History omeprazole 20 mg capsule,delayed 20 mg PO QDAY 12/06/23 Unknown History release acetaminophen 325 mg capsule 650 mg PO Q4H PRN pain 12/30/23 Unknown History (Tylenol) multivitamin-ferrous 1 tab PO DAILY 12/30/23 Unknown History fumarate-folic acid 18 mg-400 mcg tablet (A Thru Z Advanced Formula) aspirin 81 mg tablet,delayed 81 mg PO DAILY 01/18/24 Unknown History release (Adult Aspirin Regimen) gabapentin 100 mg capsule 100 mg PO TID 01/18/24 Unknown History amoxicillin 500 mg capsule 500 mg PO .COMPLEX #4 caps 02/07/24 Unknown Rx lisinopril 5 mg tablet 5 mg PO QDAY #90 tabs 09/15/24 Unknown Rx cetirizine 5 mg-pseudoephedrine ER 1 tab PO DAILY 01/16/25 Unknown History 120 mg tablet,extended release,12hr (Zyrtec-D) Allergy/AdvReac Type Severity Reaction Status Date / Time atorvastatin calcium (From Allergy Unknown Verified 05/10/25 13:59 Lipitor) rosuvastatin calcium (From Allergy Unknown Verified 05/10/25 13:59 Crestor) Family History Father Myocardial infarction, Onset Age: 60 Mother COPD (chronic obstructive pulmonary disease) Aortic aneurysm Surgical History History of bilateral cataract extraction History of elbow surgery History of knee replacement procedure of left knee History of prostatectomy (~02/2016) History of tonsillectomy and adenoidectomy History of shoulder surgery History of knee replacement procedure of right knee Presence of stent in coronary artery (~02/23/14) Postsurgical percutaneous transluminal coronary angioplasty (PTCA) status (~02/23/14) Social History Smoking Status: Former smoker ROS ROS ED Constitutional Constitutional ED: Denies chills, fever(s), subjective or sweats Musculoskeletal Musculoskeletal: Denies arthralgias, back pain, myalgias or neck pain Integumentary Reports other Details: Skin tear above the medial malleolus right ankle Hematologic/Lymphatic Hematologic/Lymphatic: Denies easy bleeding or easy bruising EXAM Physical Exam Const Vital Signs: 05/10/25 13:59 05/10/25 15:06 Temperature 97 F L Temperature Source Temporal Pulse Rate 85 75 Respiratory Rate 16 16 Blood Pressure 160/90 H 136/83 H Blood Pressure Mean 113 100 Pulse Ox 97 96 Oxygen Delivery Method Room Air Room Air Positive well nourished and well developed General Appearance ED: well developed HEENT atraumatic Eyes PERRL and EOMs intact bilaterally Resp normal respiratory effort Cardio regular rhythm Rate: regular rate Extremity full ROM; Negative for normal to inspection Extremity Narrative: There is tenderness over the distal tibia. There is a skin tear noted. There is no pain ovation over the lateral or medial malleolus. There is no pain ovation of the calcaneus. There is no neurovasc compromise. General Extremety ED: Yes tenderness; Negative for deformity General Extremity: Negative for deformity Neuro oriented x3, CN's II-XII intact bilaterally, moves all extremities, no focal motor deficits and no sensory deficits noted Skin Skin Narrative: Skin tear 1 x 2 cm MDM MDM MDM Narrative Medical decision making narrative: X-ray was obtained per nurse protocol to evaluate for foreign body/fracture. Will have nurse clean wound and dress wound. The skin was unrolled to cover the defect. Radiography Chest X-Ray - ED: Read by ED Physician (Three-view x-ray of the ankle was obtained. There is no acute findings. There is degenerative changes noted. There is no widening of the mortise.) Diagnostic Testing: Clinical Impression(s) from Imaging Studies Ankle X-Ray 05/10/25 14:05 IMPRESSION: As above. Reading Location: [facility] Discharge Plan Triage Chief Complaint: Lower Extremity Injury ED Provider: Bravo Rebolledo Dx/Rx/DC Orders Clinical Impression: Skin tear of right lower leg without complication, Essential hypertension, Presence of stent in coronary artery Instructions: ED Skin Tear (Skin Avulsion) Prescriptions: No Action etodolac [Lodine] 400 mg tablet 400 mg PO BID simvastatin 20 mg tablet 20 mg PO DAILY gabapentin 100 mg capsule 100 mg PO TID omeprazole 20 mg capsule,delayed release(DR/EC) 20 mg PO QDAY cetirizine-pseudoephedrine [Zyrtec-D] 5-120 mg tablet extended release 12 hr 1 tab PO DAILY aspirin [Adult Aspirin Regimen] 81 mg tablet,delayed release (DR/EC) 81 mg PO DAILY acetaminophen [Tylenol] 325 mg capsule 650 mg PO Q4H PRN (Reason: pain) A Thru Z Advanced Formula 18-400 mg-mcg tablet 1 tab PO DAILY amoxicillin 500 mg capsule 500 mg PO .COMPLEX Qty: 4 4RF Rx Instructions: 500 mg orally 4 capsules (2 grams) 1 hour prior to dental appt.- Premed for s/p TAVR; lisinopril 5 mg tablet 5 mg PO QDAY Qty: 90 3RF Primary Care Provider: Kendell Bundy Referrals: Kendell Bundy MD [Primary Care Provider, Family Practice] - As Needed Activity Restrictions/Additional Instructions: Do not remove dressing for 24 hours. Keep keep it clean and dry. Thereafter change dressing every 24 hours Print Language: [place] Disposition Disposition: Home, Self Care
[2025-05-10 15:33] VITALS: BP 129/79; PULSE 80; RESP 16; TEMP 36.6; O2SAT 96
== END 2025-05-10 15:33 | disposition home or self-care (01) ==
PROVIDERS: Emergency Provider Emergency Medicine; PCP Family Medicine; Visit Provider Emergency Medicine
DX: S91.011A Laceration without foreign body, right ankle, initial encounter (principal); W20.8XXA Other cause of strike by thrown, projected or falling object, initial encounter; I25.10 Atherosclerotic heart disease of native coronary artery without angina pectoris; I10 Essential (primary) hypertension; Z79.82 Long term (current) use of aspirin; Z79.899 Other long term (current) drug therapy; Z95.5 Presence of coronary angioplasty implant and graft; Z87.891 Personal history of nicotine dependence
CPT/HCPCS: 73610; 99282

== ENCOUNTER 2025-05-17 08:00 | Outpatient (RCR) | payer SELFPAY ==
[2024-04-18 09:32] VITALS: BMI 24.7
== END 2025-05-18 23:59 ==
LOC: CR 08:00
PROVIDERS: PCP Family Medicine; Referring Provider Internal Medicine Cardiovascular Disease; Visit Provider Internal Medicine Cardiovascular Disease
DX: Z00.00 Encounter for general adult medical examination without abnormal findings (principal)